=== PATIENT | female | born 1990 | race Caucasian/White ===

== ENCOUNTER 2023-03-21 20:09 | Emergency (ER) | payer OTHER ==
--- OUTSIDE RECORDS SUMMARY | 2023-03-21 20:11 | XMS REPORT | Continuity of Care Document ---
:1990 Author Organization [facility] t Address [address] [place] [address] Care Team Providers Name Role Phone Martha Lang Attending Clinician Unavailable Physician, No Primary or Family Admitting Clinician Unavaila ble Payers Payer Name Policy Type Policy Number Effective Date Expiration Date S ource Problems This patient has no known problems. Allergies, Adverse Reactions, Alerts Allergy Allergy Status Severity Reaction(s) Onset Inactive Treating Comm ents Source Name Type Date Date Clinician No Known DA Active U [facility] Allergie 02-26 [facility] 00:00: e 00 [facility] Medications This patient has no known medications. Procedures This patient has no known procedures. Encounters Start End Encounter Admission Attending Care Care Encounter Source Date/Time Date/Time Type Type Clinicians Facility Department ID 2023-02-26 2023-02-26 Emergency EM [facility] [id number] [facility] 12:36:00 13:38:[address] [place] [address] Results This patient has no known results. Notes Date/Time Note Provider Source 2023-02-26 13:40:00-00:00 [facility] ([facility]) EMERGENCY PROVIDER REPORT REPORT#:[id number] REPORT STATUS: Signed DATE:02/26/23 TIME: 1340 PATIENT: LOI ZIMMERMAN UNIT #: [id number] ROOM/BED: AGE: 32 SEX: F PCP PHYS: No Primary or Family Ph ysician SERVICE AUTHOR: Martha Lang MD * ALL edits or amendments must be made on the [employer]/computer document * HPI-General Illness General Initial Greet Date/Time 02/26/23 1248 Presentation Chief Complaint depression Hx Obtained From Patient Onset Occurred Today Free Text HPI Notes Free Text HPI Notes Patient is a 32-year-old female with no signific ant past medical history that presents with a chief complaint of depre ssion. She states today she was having a hard time. She describes several stressors in her life. [facility], but she was unable to get a ride so she was joni t here. Patient states she does not want to be here for evaluation and feels better. She denies any SI, HI or AVH. She has no medical complaints. Patient states she wants to go home. Review of Systems ROS Statements All systems rev neg except as marked. Review of Systems Constitutional Denies: Chills, Fever. Respiratory Denies: Dyspnea on exertion, Shortness of breath . GI Denies: Abdominal pain, Nausea, Vomiting. Past Medical History - Adult Stated Complaint DESPRESSION Allergies Coded Allergies: No Known Allergies (02/26/23) Pt reports no significant: Past medical history, Past surgical history Smoking status for patients 13 years old or olde r: Unknown,if ever smoked Physical Exam Vital Signs Vital Signs First Documented: Result Date Time Pulse Ox 98 02/26 1241 B/P 123/78 02/26 1241 B/P Mean 93 02/26 1241 O2 Delivery Room air 02/26 1241 Temp 36.7 02/26 1241 Pulse 65 02/26 1241 Resp 16 02/26 1241 Last Documented: Result Date Time Pulse Ox 98 02/26 1241 B/P 123/78 02/26 1241 B/P Mean 93 02/26 1241 O2 Delivery Room air 02/26 1241 Temp 36.7 02/26 1241 Pulse 65 02/26 1241 Resp 16 02/26 1241 Review of Vital Signs Reviewed Physical Exam General/Const General/Const Awake, Alert, Well appearing MS Head Head Atraumatic, Normocephalic Ears/Nose/Throat Ears/Nose/Throat Airway patent, Mucous membrane s moist, Pharynx NL MS Neck Neck Supple, No meningismus, Full range of shey on, No swelling, Non-tender, No masses Resp/Chest Respiratory/Chest Breath sounds NL, Breath soun ds = bilat, No respiratory distress, No rales, No rhonchi, No wheezing Cardiovascular Cardiovascular Heart rate NL, Regular r hythm, Heart sounds NL, Cap refill not delayed, Peripheral circulation NL Abdomen/GI Abdomen/GI Soft, Non-tender, No guarding, No re bound MS Back Back Inspection NL, Painless range of motion, N on-tender, No CVA tenderness MS Upper Extrem Upper Extremity/MS Inspection NL, No swelling, Non-tender, No erythema, No deformity, Neurologic intact, Vascular intact, N o clubbing/cyanosis MS Lower Extrem Lower Ext/Pelvis/MS Inspection NL, No swelling, Non-tender, No erythema, No deformity, Neurologic intact, Vascular intact, N o edema Skin Skin Color NL, Warm, Dry, Turgor NL Neurologic Neurologic Oriented X3, Speech NL, No motor def icits, No sensory deficits Psychiatric Psychiatric Affect NL, Mood NL, Thought content NL Re-Evaluation MDM Free Text MDM Notes Free Text MDM Notes Patient reports that she navarrete s not feel she needs psychiatric evaluation at this time. She has no medical complaints. Patient sta jacky he feels much better and would rather go home to follow-up with [place]. Patient does not appear to pose a danger to herself or other s, so I feel she is safe for discharge home. Follow -up resources were provided at discharge. Patient Discharge Departure Vital Signs/Condition Vital Signs First Documented: Result Date Time Pulse Ox 98 02/26 1241 B/P 123/78 02/26 1241 B/P Mean 93 02/26 1241 O2 Delivery Room air 02/26 1241 Temp 36.7 02/26 1241 Pulse 65 02/26 1241 Resp 16 02/26 1241 Last Documented: Result Date Time Pulse Ox 98 02/26 1241 B/P 123/78 02/26 1241 B/P Mean 93 02/26 1241 O2 Delivery Room air 02/26 1241 Temp 36.7 15 1241 Pulse 65 02/26 1241 Resp 16 02/26 1241 All vital signs available at the time of this en try have been reviewed. Clinical Impression Clinical Impression Primary Impression: Stress and adjustment reacti on Disposition Decision Discharge )( Discharged to Home Yes )( Time 1348 )( Date 02/26/23 Discharge/Care Plan Patient Instructions ED Depression Referrals Resource Referral: [facility] Address: [address] [place] [address] at 1653 RPT #:[id number] END OF REPORT
[2023-03-21] MEDS ORDERED: IBUPROFEN 400 MG TAB ONE (21:50)
[2023-03-21] MEDS ORDERED: HYDROCODONE/APAP 5/325 MG TAB ONE (21:50)
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
[2023-03-22] MEDS ORDERED: metroNIDAZOLE 500 MG TABLET ONE (01:45)
[2023-03-22] MEDS ORDERED: AZITHROMYCIN 250 MG TAB ONE (01:46)
[2023-03-22] MEDS ORDERED: ONDANSETRON 4 MG (ODT) TAB ONE (01:46)
[2023-03-22] MEDS ORDERED: CEFTRIAXONE 1000 MG/VIAL ONE (01:46)
[2023-03-22] MEDS ORDERED: WATER FOR INJ,STERILE 10 ML ONE (01:47)
[2023-03-22] MEDS ORDERED: CEFTRIAXONE 500 MG/VIAL ONE (01:48)
[2023-03-22 02:55] VITALS: BP 114/72; TEMP 98.5; O2SAT 99
== END 2023-03-22 02:12 | disposition home or self-care (01) ==
LOC: ER 20:09
DX: R41.82 Altered mental status, unspecified (principal); Y09 Assault by unspecified means; F17.210 Nicotine dependence, cigarettes, uncomplicated
CPT/HCPCS: 96372; 99284; Q0162; J0696